=== PATIENT | female | born 1940 | race Caucasian/White ===

== ENCOUNTER 2016-05-09 23:39 | Inpatient (IN) | payer OTHER, MEDICARE ==
[~2016-05-09] VITALS: Ht 165.1 cm; Wt 83.5 kg
[~2016-05-09 23:39] MED LIST: BENADRYL25 MG PO; CLARITIN,ALAVAR10 MG PO; COQ10-VIT E 101 EACH PO; DAILY VALUE1 EACH PO; GLUCOSAMINE S1000 M2 PO; LOPRESSOR50 MG PO; PROTONIX40 MG PO; SENNA8.6 MG PO; SIMVASTATIN20 MG PO; STOOL SOFTENER100 MG PO
[2016-05-10 00:28] LABS: HEMATOCRIT 25.7 % (36.0-46.0); MCH 32.9 PG (29.0-34.0); MCHC 32.7 G/DL (30.0-36.0); MCV 100.8 FL (83-99); MEAN PLAT.VOLUME 9.4 uM^3 (9.5-12.4); PLATELET COUNT 225 K/uL (156-360); RBC DIS.WIDTH-CV 17.8 % (11.8-14.6); RBC DIS.WIDTH-SD 61.8 % (39-53); RED BLOOD COUNT 2.55 M/uL (3.80-5.20)
[2016-05-10 00:31] LABS: BASOPHIL COUNT 0.1 K/uL (0-0.1); EOSINOPHIL (%) 1.3 % (0-5); EOSINOPHIL COUNT 0.1 K/uL (0-0.3); IMMATURE GRANULOCYTE (%) 2.2 % (0.0-0.7); IMMATURE GRANULOCYTE COUNT 1.2 K/uL; LYMPHOCYTE COUNT 0.7 K/uL (1.0-2.8); MONOCYTE COUNT 0.7 K/uL (0-0.8); NEUTROPHIL (%) 69.7 % (45-76); NEUTROPHIL COUNT 3.7 K/uL (1.8-6.4)
[2016-05-10 00:32] LABS: WHITE BLOOD COUNT 5.4 K/uL (4.1-10.2)
[2016-05-10 00:37] LABS: CHLORIDE 110 mEq/L (99-109); POTASSIUM 4.3 mEq/L (3.7-5.4)
[2016-05-10 00:38] LABS: SODIUM 139 mEq/L (136-147)
[2016-05-10 00:40] LABS: GLUCOSE 119 mg/dL (70-99)
[2016-05-10 00:41] LABS: ANION GAP 10 MEQ/L (2-14)
[2016-05-10 00:42] LABS: TOTAL BILIRUBIN 0.9 mg/dL (0.0-1.0)
[2016-05-10 00:43] LABS: ALKALINE PHOSPHATASE 138 IU/L (3-129); GFR ESTIMATE (CALCULATED) 47 mL/min/
[2016-05-10 00:45] LABS: UREA NITROGEN (BUN) 16 mg/dL (9-23)
[2016-05-10 00:47] LABS: LIPASE 15 U/L (1.0-51.0)
[2016-05-10 00:50] LABS: TROP-I INTERPRETATION NEGATIVE; TROPONIN-I 0.06 ng/mL (0.0-0.30)
[2016-05-10 01:09] LABS: D-DIMER ELISA > 4.00 mg/L FEU (< 0.57)
[2016-05-10 04:01] LABS: ADD MIUA? YES; BILIRUBIN NEGATIVE; BLOOD LARGE; COLOR YELLOW ((YELLOW)); GLUCOSE (STRIP) NEGATIVE; KETONES NEGATIVE; LEUKOCYTES MODERATE; NITRITE NEGATIVE; PROTEIN (STRIP) 100; SPECIFIC GRAVITY 1.042 (1.000-1.030); UROBILINOGEN 0.2 MG/DL (0.2-1.0)
[2016-05-10 04:11] LABS: BACTERIA RARE /HPF; CASTS NONE SEEN /LPF; CRYSTALS NONE SEEN; EPITHELIAL CELLS 3+ /HPF; MUCUS TRACE /LPF; RED BLOOD CELLS TNTC /HPF (0-5); UCUL ADDED? NO; WHITE BLOOD CELLS 20-30 /HPF (0-5)
[2016-05-10] MEDS ORDERED: NAPROXEN250 MG PO (08:21)
[2016-05-10] MEDS ORDERED: MAXZIDE 37.5 M1 EACH PO (08:22)
[2016-05-10] MEDS ORDERED: AMOX TR-K CLV1 EAC4 PO (08:23)
[2016-05-10 12:34] LABS: HEMATOLOGY COMMENT 1 SMEAR COMPATIBLE; USER ID VLB
[2016-05-10 16:26] VITALS: BP 146/80
[2016-05-10 17:00] VITALS: BP 155/84
[2016-05-10 19:44] VITALS: BP 158/75
[2016-05-11] VITALS (11 sets, daily range): BP systolic 132–163; BP diastolic 63–92
[2016-05-11 07:04] LABS: HEMATOCRIT 21.8 % (36.0-46.0); MCH 32.1 PG (29.0-34.0); MCHC 32.6 G/DL (30.0-36.0); MCV 98.6 FL (83-99); RBC DIS.WIDTH-CV 19.2 % (11.8-14.6); RBC DIS.WIDTH-SD 67.4 % (39-53); RED BLOOD COUNT 2.21 M/uL (3.80-5.20)
[2016-05-11 07:49] LABS: ALKALINE PHOSPHATASE 91 IU/L (3-129); ANION GAP 8 MEQ/L (2-14); CHLORIDE 110 MEQ/L (99-109); GFR ESTIMATE (CALCULATED) 47 mL/min/; GLUCOSE 90 mg/dL (70-99); POTASSIUM 4.4 MEQ/L (3.7-5.4); SAMPLE HEMOLYSIS CHECK 0; SAMPLE ICTERIC CHECK 0; SAMPLE LIPEMIA CHECK 0; SODIUM 140 MEQ/L (136-147); TOTAL BILIRUBIN 0.9 MG/DL (0.0-1.0); UREA NITROGEN (BUN) 18 mg/dL (9-23)
[2016-05-11 08:17] LABS: INTER. NORMALIZED RATIO 1.1; PROTHROMBIN TIME 11.4 (9.2-11.2); PTT 33.3 (25-32)
[2016-05-11 08:31] LABS: IRON 214 MCG/DL (35-150)
[2016-05-11 08:46] LABS: ABSOLUTE RETICULOCYTE CT. 0.05 M/uL (0.02-0.08); IMM.RETIC FRACTION 36.3 % (3-19); RETICULOCYTE COUNT 2.2 % (0.5-1.8)
[2016-05-11 09:52] LABS: PLATELET COUNT 147 K/uL (156-360)
[2016-05-11 09:58] LABS: HEMATOCRIT 24.8 % (36.0-46.0)
[2016-05-11 10:39] LABS: FERRITIN 821 NG/ML (10-291)
[2016-05-11 13:18] LABS: TROP-I INTERPRETATION POSITIVE
[2016-05-11 13:20] LABS: TROPONIN-I 1.08 ng/mL (0.0-0.30)
[2016-05-11 20:46] LABS: TROP-I INTERPRETATION POSITIVE
[2016-05-11 20:47] LABS: TROPONIN-I 1.56 ng/mL (0.0-0.30)
[2016-05-11 22:44] LABS: HEMATOCRIT 29.9 % (36.0-46.0); MCV 97.7 FL (83-99)
[2016-05-12 01:04] LABS: TROP-I INTERPRETATION POSITIVE
[2016-05-12 01:06] LABS: TROPONIN-I 1.56 ng/mL (0.0-0.30)
[2016-05-12 04:09] VITALS: BP 135/67
[2016-05-12 06:58] LABS: HEMATOCRIT 25.8 % (36.0-46.0); MCH 31.9 PG (29.0-34.0); MCHC 33.3 G/DL (30.0-36.0); MCV 95.6 FL (83-99); RBC DIS.WIDTH-SD 64.6 % (39-53); WHITE BLOOD COUNT 6.5 K/uL (4.1-10.2)
[2016-05-12 07:02] LABS: ANION GAP 7 MEQ/L (2-14); CHLORIDE 108 MEQ/L (99-109); GFR ESTIMATE (CALCULATED) 43 mL/min/; GLUCOSE 87 mg/dL (70-99); POTASSIUM 4.2 MEQ/L (3.7-5.4); SAMPLE HEMOLYSIS CHECK 0; SAMPLE ICTERIC CHECK 0; SAMPLE LIPEMIA CHECK 0; SODIUM 137 MEQ/L (136-147); UREA NITROGEN (BUN) 23 mg/dL (9-23)
[2016-05-12 07:13] LABS: TROP-I INTERPRETATION POSITIVE
[2016-05-12 07:20] LABS: TROPONIN-I 1.43 ng/mL (0.0-0.30)
[2016-05-12 07:57] LABS: MEAN PLAT.VOLUME 11.2 uM^3 (9.5-12.4)
[2016-05-12 08:14] LABS: PLATELET COUNT 101 K/uL (156-360)
[2016-05-12 09:00] VITALS: BP 133/63
[2016-05-12 12:00] VITALS: BP 127/60
[2016-05-12 16:08] VITALS: BP 169/76
[2016-05-12 19:30] VITALS: BP 161/74
[2016-05-12 19:33] LABS: INTERNAL CONTROL VALID? YES
[2016-05-12 20:10] LABS: HEMATOCRIT 25.8 % (36.0-46.0); MCV 95.6 FL (83-99)
[2016-05-12 23:34] VITALS: BP 145/72
[2016-05-13] VITALS (13 sets, daily range): BP systolic 121–172; BP diastolic 59–82
[2016-05-13 06:23] LABS: HEMATOCRIT 25.1 % (36.0-46.0); MCV 95.4 FL (83-99)
[2016-05-13 06:56] LABS: ANION GAP 7 MEQ/L (2-14); CHLORIDE 109 MEQ/L (99-109); GFR ESTIMATE (CALCULATED) 43 mL/min/; GLUCOSE 83 mg/dL (70-99); POTASSIUM 4.4 MEQ/L (3.7-5.4); SAMPLE HEMOLYSIS CHECK 0; SAMPLE ICTERIC CHECK 0; SAMPLE LIPEMIA CHECK 0; SODIUM 138 MEQ/L (136-147); UREA NITROGEN (BUN) 29 mg/dL (9-23)
[2016-05-13 13:50] LABS: HEMATOCRIT 27.2 % (36.0-46.0); MCV 97.5 FL (83-99)
[2016-05-14 04:45] VITALS: BP 138/77
[2016-05-14 06:50] LABS: HEMATOCRIT 27.8 % (36.0-46.0)
[2016-05-14 06:55] LABS: MCV 91.7 FL (83-99)
[2016-05-14 09:05] VITALS: BP 169/91
[2016-05-14 10:33] LABS: ANION GAP 6 MEQ/L (2-14); CHLORIDE 109 MEQ/L (99-109); GFR ESTIMATE (CALCULATED) 43 mL/min/; GLUCOSE 83 mg/dL (70-99); LACTATE DEHYDROGENASE 594 IU/L (20-246); POTASSIUM 4.4 MEQ/L (3.7-5.4); SAMPLE HEMOLYSIS CHECK 0; SAMPLE ICTERIC CHECK 0; SAMPLE LIPEMIA CHECK 0; SODIUM 137 MEQ/L (136-147); UREA NITROGEN (BUN) 31 mg/dL (9-23)
[2016-05-14 10:35] LABS: ALKALINE PHOSPHATASE 193 IU/L (3-129); TOTAL BILIRUBIN 1.7 MG/DL (0.0-1.0)
[2016-05-14 11:12] LABS: ADD MIUA? YES; BILIRUBIN NEGATIVE; BLOOD LARGE; COLOR YELLOW ((YELLOW)); GLUCOSE (STRIP) NEGATIVE; KETONES NEGATIVE; LEUKOCYTES NEGATIVE; NITRITE NEGATIVE; PROTEIN (STRIP) 30; SPECIFIC GRAVITY 1.012 (1.000-1.030); UROBILINOGEN 0.2 MG/DL (0.2-1.0)
[2016-05-14 11:37] LABS: BACTERIA 1+ /HPF; EPITHELIAL CELLS RARE /HPF; HYALINE CASTS 0-5 /LPF; MUCUS TRACE /LPF; RED BLOOD CELLS 0-5 /HPF (0-5); WHITE BLOOD CELLS 15-20 /HPF (0-5)
[2016-05-14 11:59] VITALS: BP 153/72
[2016-05-14 13:42] LABS: PLATELET COUNT 59 K/uL (156-360)
[2016-05-14 15:11] VITALS: BP 171/81
[2016-05-14 19:15] VITALS: BP 166/78
[2016-05-15 00:05] VITALS: BP 150/78
[2016-05-15 04:15] VITALS: BP 142/70
[2016-05-15 07:24] LABS: ANION GAP 3 MEQ/L (2-14); CHLORIDE 109 MEQ/L (99-109); POTASSIUM 4.2 MEQ/L (3.7-5.4); SAMPLE HEMOLYSIS CHECK 0; SAMPLE ICTERIC CHECK 0; SAMPLE LIPEMIA CHECK 0; SODIUM 137 MEQ/L (136-147)
[2016-05-15 07:30] LABS: GFR ESTIMATE (CALCULATED) 52 mL/min/; GLUCOSE 85 mg/dL (70-99); UREA NITROGEN (BUN) 32 mg/dL (9-23)
[2016-05-15 07:32] LABS: C3 COMPLEMENT 129 MG/DL (58-170); C4 COMPLEMENT 37 MG/DL (10-40)
[2016-05-15 07:34] LABS: DIRECT BILIRUBIN 0.6 mg/dL (0.0-0.3); TOTAL BILIRUBIN 1.4 MG/DL (0.0-1.0)
[2016-05-15 07:36] LABS: EOSINOPHIL (%) 5.6 % (0-5); EOSINOPHIL COUNT 0.2 K/uL (0-0.3); IMMATURE GRANULOCYTE (%) 0.3 % (0.0-0.7); LYMPHOCYTE COUNT 0.9 K/uL (1.0-2.8); MCH 31.6 PG (29.0-34.0); MCHC 34.3 G/DL (30.0-36.0); MCV 92.1 FL (83-99); MONOCYTE (%) 0.9 % (3-12); NEUTROPHIL (%) 67.5 % (45-76); NEUTROPHIL COUNT 2.3 K/uL (1.8-6.4); RBC DIS.WIDTH-CV 18.9 % (11.8-14.6); RBC DIS.WIDTH-SD 62.1 % (39-53); RED BLOOD COUNT 3.04 M/uL (3.80-5.20)
[2016-05-15 07:48] LABS: WHITE BLOOD COUNT 3.4 K/uL (4.1-10.2)
[2016-05-15 07:49] VITALS: BP 167/80
[2016-05-15 07:56] LABS: ALKALINE PHOSPHATASE 258 IU/L (3-129)
[2016-05-15 08:27] LABS: PLAT.SUFFICIENCY DECREASED; USER ID STC
[2016-05-15 08:48] LABS: PLATELET COUNT 34 K/uL (156-360)
[2016-05-15 10:05] LABS: HEMATOCRIT 27.7 % (36.0-46.0)
[2016-05-15 11:15] LABS: ANTI-HEPATITIS A VIRUS (IGM) Nonreactive; HAV INDEX 0.39; HPCA INDEX 0.15
[2016-05-15 11:17] LABS: ANTI-HEPATITIS B CORE (IGM) Nonreactive; HBC IgM INDEX 0.06
[2016-05-15 12:33] VITALS: BP 171/83
[2016-05-15 12:54] LABS: PROTHROMBIN TIME 10.3 (9.2-11.2); PTT 33.4 (25-32)
[2016-05-15 13:25] LABS: ALKALINE PHOSPHATASE 258 IU/L (3-129); DIRECT BILIRUBIN 0.5 mg/dL (0.0-0.3); TOTAL BILIRUBIN 1.2 MG/DL (0.0-1.0)
[2016-05-15 14:36] LABS: UR CREATININE CONCENTRATION 90.6 MG/DL
[2016-05-15 15:45] VITALS: BP 152/77
[2016-05-15] MEDS ORDERED: FUROSEMIDE20 MG PO (16:29)
[2016-05-15] MEDS ORDERED: LISINOPRIL10 MG PO (16:29)
[2016-05-15] MEDS ORDERED: LOPRESSOR50 MG PO (16:29)
[2016-05-15] MEDS ORDERED: K-DUR10 MEQ PO (16:32)
== END 2016-05-15 18:31 | disposition home or self-care (01) | DRG 281 ==
LOC: EME 23:39 → 4EAST 05-10 04:43 → EDOF 05-10 04:43 → 5SOUTH 05-10 04:43 → 4EAST 05-11 16:19
PROVIDERS: Emergency Medicine; Hospitalist; Internal Medicine; Internal Medicine Cardiovascular Disease; Internal Medicine Gastroenterology; Internal Medicine Nephrology; Physician Assistant Medical; Radiology Diagnostic Radiology
PROC: 30233N1 Transfusion of Nonautologous Red Blood Cells into Peripheral Vein, Percutaneous Approach (ICD-10-PCS; principal; 2016-05-13)
DX: I50.33 Acute on chronic diastolic (congestive) heart failure (principal); I21.4 Non-ST elevation (NSTEMI) myocardial infarction; J90 Pleural effusion, not elsewhere classified; D64.81 Anemia due to antineoplastic chemotherapy; C25.7 Malignant neoplasm of other parts of pancreas; N39.0 Urinary tract infection, site not specified; I24.9 Acute ischemic heart disease, unspecified; I10 Essential (primary) hypertension; E78.5 Hyperlipidemia, unspecified; D69.6 Thrombocytopenia, unspecified; K75.9 Inflammatory liver disease, unspecified
CPT/HCPCS: 71020; 71275; 76604; 76705; 76770; 80048; 80053; 80069; 80074; 80076; 81003; 82272; 82550; 82570; 82607; 82728; 82746; 82945; 83010 90; 83540; 83615; 83615 91; 83690; 83880; 84156; 84157; 84466; 84484; 85014; 85018; 85025; 85027; 85045; 85049; 85379; 85610; 85730; 86160; 86162 90; 86850; 86900; 86901; 86920; 87070; 87086; 87205; 89051; 93005; 93306; 93970; 94640; 94640 76; 99202; 99281; 99285; J0744; J1650; J1940; J1956; J7030; P9016

== ENCOUNTER 2016-05-17 16:45 | Emergency (ER) | payer OTHER, MEDICARE ==
[~2016-05-17] VITALS: Ht 165.1 cm; Wt 81.0 kg
[~2016-05-17 16:45] MED LIST changes: +AMOX TR-K CLV1 EAC4 PO; +FUROSEMIDE20 MG PO; +K-DUR10 MEQ PO; +LISINOPRIL10 MG PO; +MAXZIDE 37.5 M1 EACH PO; +NAPROXEN250 MG PO
[2016-05-17 17:42] LABS: CHLORIDE 110 mEq/L (99-109); POTASSIUM 4.9 mEq/L (3.7-5.4); SODIUM 138 mEq/L (136-147)
[2016-05-17 17:44] LABS: GLUCOSE 82 mg/dL (70-99)
[2016-05-17 17:46] LABS: ANION GAP 8 MEQ/L (2-14); TOTAL BILIRUBIN 1.3 mg/dL (0.0-1.0)
[2016-05-17 17:48] LABS: ALKALINE PHOSPHATASE 383 IU/L (3-129); GFR ESTIMATE (CALCULATED) 47 mL/min/
[2016-05-17 17:49] LABS: UREA NITROGEN (BUN) 28 mg/dL (9-23)
[2016-05-17 17:50] LABS: DIRECT BILIRUBIN 0.6 mg/dL (0.0-0.3)
[2016-05-17 17:51] LABS: LIPASE 27 U/L (1.0-51.0)
[2016-05-17 19:30] LABS: ABS NEUTROPHIL COUNT 2.06; ANISOCYTOSIS 1+; BASOPHIL COUNT 0.1 K/uL (0-0.1); EOSINOPHIL (%) 3.6 % (0-5); EOSINOPHIL ABS CT 0.35; EOSINOPHIL COUNT 0.2 K/uL (0-0.3); HEMATOCRIT 27.7 % (36.0-46.0); IMMATURE GRANULOCYTE (%) 4.6 % (0.0-0.7); LYMPHOCYTE COUNT 1.2 K/uL (1.0-2.8); MCH 30.9 PG (29.0-34.0); MCHC 33.6 G/DL (30.0-36.0); MONOCYTE (%) 18.2 % (3-12); MONOCYTE COUNT 0.8 K/uL (0-0.8); NEUTROPHIL (%) 45.6 % (45-76); OVALOCYTES 1+; PLAT.SUFFICIENCY DECREASED; POLYCHROMASIA OCC; RBC DIS.WIDTH-SD 56.7 % (39-53); RED BLOOD COUNT 3.01 M/uL (3.80-5.20); SCHISTOCYTES 1+; TEAR DROP CELLS RARE; USER ID WCD; WHITE BLOOD COUNT 4.4 K/uL (4.1-10.2)
[2016-05-17 19:32] LABS: PLATELET COUNT 29 K/uL (156-360)
[2016-05-17 19:35] VITALS: BP 169/90
[2016-05-17 19:50] VITALS: BP 172/93; BP 175/117
[2016-05-17 20:50] VITALS: BP 170/92
== END 2016-05-17 20:50 | disposition short-term general hospital (02) ==
LOC: EME 16:45
PROVIDERS: Emergency Medicine
DX: M31.1 Thrombotic microangiopathy (principal); C25.9 Malignant neoplasm of pancreas, unspecified; E78.5 Hyperlipidemia, unspecified; I10 Essential (primary) hypertension
CPT/HCPCS: 80048; 80076; 83690; 85007; 85025 91; 85027; 85060; 85397 90; 86850; 86900; 86901; 99281; 99285; J2930; J7030; P9017

== ENCOUNTER 2016-06-21 01:04 | Inpatient (IN) | payer OTHER, MEDICARE ==
[~2016-06-21] VITALS: Ht 165.1 cm; Wt 78.5 kg
[2016-06-21] VITALS (12 sets, daily range): BP systolic 154–186; BP diastolic 82–119
[2016-06-21 02:12] LABS: MCH 30.9 PG (29.0-34.0); MCHC 30.8 G/DL (30.0-36.0); MCV 100.4 FL (83-99); MEAN PLAT.VOLUME 11.3 uM^3 (9.5-12.4); RBC DIS.WIDTH-CV 18.3 % (11.8-14.6); RBC DIS.WIDTH-SD 67.5 % (39-53); RED BLOOD COUNT 2.59 M/uL (3.80-5.20); WHITE BLOOD COUNT 10.3 K/uL (4.1-10.2)
[2016-06-21 02:22] LABS: INTER. NORMALIZED RATIO 1.1; PROTHROMBIN TIME 11.6 (9.2-11.2); PTT 32.7 (25-32)
[2016-06-21 02:26] LABS: CHLORIDE 114 mEq/L (99-109); POTASSIUM 4.3 mEq/L (3.7-5.4); SODIUM 145 mEq/L (136-147)
[2016-06-21 02:28] LABS: GLUCOSE 146 mg/dL (70-99)
[2016-06-21 02:29] LABS: ANION GAP 9 MEQ/L (2-14); PLATELET COUNT 154 K/uL (156-360)
[2016-06-21 02:30] LABS: TOTAL BILIRUBIN 1.2 mg/dL (0.0-1.0)
[2016-06-21 02:31] LABS: ALKALINE PHOSPHATASE 156 IU/L (3-129)
[2016-06-21 02:32] LABS: GFR ESTIMATE (CALCULATED) 28 mL/min/
[2016-06-21 02:33] LABS: UREA NITROGEN (BUN) 39 mg/dL (9-23)
[2016-06-21 02:35] LABS: LIPASE 130 U/L (1.0-51.0); TROP-I INTERPRETATION NEGATIVE; TROPONIN-I 0.25 ng/mL (0.0-0.30)
[2016-06-21] MEDS ORDERED: LASIX40 MG PO (10:30)
[2016-06-21] MEDS ORDERED: PROCARDIA XL60 MG PO (10:31)
[2016-06-21] MEDS ORDERED: ZOFRAN4 MG PO (10:32)
[2016-06-21] MEDS ORDERED: VENTOLIN HFA18 GM IH (10:32)
[2016-06-21 14:52] LABS: LACTATE DEHYDROGENASE 508 IU/L (20-246)
[2016-06-22 04:40] VITALS: BP 150/71
[2016-06-22 08:08] LABS: HEMATOCRIT 25.4 % (36.0-46.0); MCH 31.1 PG (29.0-34.0); MCHC 31.5 G/DL (30.0-36.0); MCV 98.8 FL (83-99); RBC DIS.WIDTH-SD 64.3 % (39-53); RED BLOOD COUNT 2.57 M/uL (3.80-5.20); WHITE BLOOD COUNT 9.8 K/uL (4.1-10.2)
[2016-06-22 08:28] LABS: ANION GAP 13 MEQ/L (2-14); CHLORIDE 113 MEQ/L (99-109); GFR ESTIMATE (CALCULATED) 28 mL/min/; POTASSIUM 3.9 MEQ/L (3.7-5.4); SAMPLE HEMOLYSIS CHECK 0; SAMPLE ICTERIC CHECK 0; SAMPLE LIPEMIA CHECK 0; SODIUM 148 MEQ/L (136-147); UREA NITROGEN (BUN) 36 mg/dL (9-23)
[2016-06-22 08:29] LABS: ALKALINE PHOSPHATASE 115 IU/L (3-129); GLUCOSE 84 mg/dL (70-99); TOTAL BILIRUBIN 0.9 MG/DL (0.0-1.0)
[2016-06-22 08:36] LABS: BASOPHIL COUNT 0.1 K/uL (0-0.1); EOSINOPHIL (%) 9.6 % (0-5); EOSINOPHIL COUNT 0.9 K/uL (0-0.3); IMMATURE GRANULOCYTE (%) 0.5 % (0.0-0.7); IMMATURE GRANULOCYTE COUNT 0.1 K/uL; INSTRUMENT ABS NEUTROPHIL CT 6.4 K/uL; MONOCYTE (%) 12.6 % (3-12); MONOCYTE COUNT 1.2 K/uL (0-0.8); NEUTROPHIL COUNT 6.4 K/uL (1.8-6.4); PLAT.SUFFICIENCY DECREASED
[2016-06-22 08:37] LABS: PLATELET COUNT 103 K/uL (156-360)
[2016-06-22 11:54] VITALS: BP 168/82
[2016-06-22 16:54] VITALS: BP 120/65
[2016-06-22 20:39] VITALS: BP 130/63
[2016-06-23] VITALS (7 sets, daily range): BP systolic 115–146; BP diastolic 58–83
[2016-06-23 04:26] LABS: BASOPHIL COUNT 0.1 K/uL (0-0.1); EOSINOPHIL (%) 24.4 % (0-5); EOSINOPHIL COUNT 2.3 K/uL (0-0.3); HEMATOCRIT 23.8 % (36.0-46.0); IMMATURE GRANULOCYTE (%) 0.3 % (0.0-0.7); INSTRUMENT ABS NEUTROPHIL CT 4.6 K/uL; LYMPHOCYTE COUNT 1.1 K/uL (1.0-2.8); MCH 30.6 PG (29.0-34.0); MCHC 31.1 G/DL (30.0-36.0); MCV 98.3 FL (83-99); MEAN PLAT.VOLUME 11.7 uM^3 (9.5-12.4); MONOCYTE (%) 15.1 % (3-12); MONOCYTE COUNT 1.5 K/uL (0-0.8); NEUTROPHIL (%) 47.8 % (45-76); NEUTROPHIL COUNT 4.6 K/uL (1.8-6.4); PLATELET COUNT 114 K/uL (156-360); RBC DIS.WIDTH-SD 61.2 % (39-53); RED BLOOD COUNT 2.42 M/uL (3.80-5.20); WHITE BLOOD COUNT 9.6 K/uL (4.1-10.2)
[2016-06-23 04:36] LABS: CHLORIDE 112 mEq/L (99-109); POTASSIUM 3.7 mEq/L (3.7-5.4); SODIUM 145 mEq/L (136-147)
[2016-06-23 04:37] LABS: CHLORIDE 112 mEq/L (99-109); POTASSIUM 3.7 mEq/L (3.7-5.4); SODIUM 144 mEq/L (136-147)
[2016-06-23 04:38] LABS: GLUCOSE 81 mg/dL (70-99)
[2016-06-23 04:39] LABS: ANION GAP 10 MEQ/L (2-14); GLUCOSE 82 mg/dL (70-99)
[2016-06-23 04:40] LABS: ANION GAP 10 MEQ/L (2-14)
[2016-06-23 04:41] LABS: GFR ESTIMATE (CALCULATED) 25 mL/min/
[2016-06-23 04:42] LABS: GFR ESTIMATE (CALCULATED) 25 mL/min/; UREA NITROGEN (BUN) 39 mg/dL (9-23)
[2016-06-23 04:44] LABS: UREA NITROGEN (BUN) 38 mg/dL (9-23)
[2016-06-24 04:27] VITALS: BP 152/72
[2016-06-24 06:59] LABS: BASOPHIL COUNT 0.2 K/uL (0-0.1); EOSINOPHIL (%) 24.7 % (0-5); EOSINOPHIL COUNT 2.5 K/uL (0-0.3); IMMATURE GRANULOCYTE (%) 0.3 % (0.0-0.7); INSTRUMENT ABS NEUTROPHIL CT 4.6 K/uL; LYMPHOCYTE COUNT 1.3 K/uL (1.0-2.8); MCH 30.3 PG (29.0-34.0); MCHC 31.2 G/DL (30.0-36.0); MCV 97.4 FL (83-99); MEAN PLAT.VOLUME 11.8 uM^3 (9.5-12.4); MONOCYTE (%) 16.1 % (3-12); MONOCYTE COUNT 1.6 K/uL (0-0.8); NEUTROPHIL (%) 44.8 % (45-76); NEUTROPHIL COUNT 4.6 K/uL (1.8-6.4); PLATELET COUNT 132 K/uL (156-360); RBC DIS.WIDTH-CV 16.5 % (11.8-14.6); RBC DIS.WIDTH-SD 59.6 % (39-53); RED BLOOD COUNT 2.67 M/uL (3.80-5.20); WHITE BLOOD COUNT 10.2 K/uL (4.1-10.2)
[2016-06-24 07:28] LABS: ANION GAP 8 MEQ/L (2-14); CHLORIDE 109 MEQ/L (99-109); GFR ESTIMATE (CALCULATED) 28 mL/min/; GLUCOSE 83 mg/dL (70-99); POTASSIUM 3.6 MEQ/L (3.7-5.4); SAMPLE HEMOLYSIS CHECK 0; SAMPLE ICTERIC CHECK 0; SAMPLE LIPEMIA CHECK 0; SODIUM 143 MEQ/L (136-147); UREA NITROGEN (BUN) 40 mg/dL (9-23)
[2016-06-24 09:20] VITALS: BP 150/75
[2016-06-24 11:37] VITALS: BP 152/76
[2016-06-24 17:10] VITALS: BP 125/70
[2016-06-24 19:26] VITALS: BP 140/68
[2016-06-24 23:36] VITALS: BP 117/61
[2016-06-25 04:06] VITALS: BP 140/66
[2016-06-25 05:54] LABS: ANION GAP 8 MEQ/L (2-14); BASOPHIL COUNT 0.1 K/uL (0-0.1); CHLORIDE 107 MEQ/L (99-109); EOSINOPHIL (%) 23.7 % (0-5); GFR ESTIMATE (CALCULATED) 29 mL/min/; GLUCOSE 77 mg/dL (70-99); HEMATOCRIT 24.9 % (36.0-46.0); IMMATURE GRANULOCYTE (%) 0.5 % (0.0-0.7); INSTRUMENT ABS NEUTROPHIL CT 3.7 K/uL; LYMPHOCYTE COUNT 1.4 K/uL (1.0-2.8); MCH 30.6 PG (29.0-34.0); MCHC 31.7 G/DL (30.0-36.0); MCV 96.5 FL (83-99); MEAN PLAT.VOLUME 11.6 uM^3 (9.5-12.4); MONOCYTE COUNT 1.3 K/uL (0-0.8); NEUTROPHIL (%) 43.8 % (45-76); NEUTROPHIL COUNT 3.7 K/uL (1.8-6.4); PLATELET COUNT 129 K/uL (156-360); POTASSIUM 3.6 MEQ/L (3.7-5.4); RBC DIS.WIDTH-CV 16.3 % (11.8-14.6); RBC DIS.WIDTH-SD 58.1 % (39-53); RED BLOOD COUNT 2.58 M/uL (3.80-5.20); SAMPLE HEMOLYSIS CHECK 0; SAMPLE ICTERIC CHECK 0; SAMPLE LIPEMIA CHECK 0; SODIUM 140 MEQ/L (136-147); UREA NITROGEN (BUN) 44 mg/dL (9-23); URIC ACID 7.9 mg/dL (3.1-9.2); WHITE BLOOD COUNT 8.5 K/uL (4.1-10.2)
[2016-06-25 08:10] LABS: INTERNAL CONTROL VALID? YES
[2016-06-25 08:25] VITALS: BP 144/74
[2016-06-25 12:28] VITALS: BP 119/57
[2016-06-25] MEDS ORDERED: LASIX20 MG PO (14:03)
[2016-06-25] MEDS ORDERED: POTASSIUM CHLO10 ME3 PO (14:03)
== END 2016-06-25 16:25 | disposition home health service (06) | DRG 291 ==
LOC: EME 01:04 → 4EAST 06:18 → EDOF 06:18 → 4EAST 17:20
PROVIDERS: Emergency Medicine; Internal Medicine Nephrology; Student in an Organized Health Care Education/Training Program
PROC: 30233N1 Transfusion of Nonautologous Red Blood Cells into Peripheral Vein, Percutaneous Approach (ICD-10-PCS; principal; 2016-06-21)
DX: I50.33 Acute on chronic diastolic (congestive) heart failure (principal); D59.3 Hemolytic-uremic syndrome; J96.01 Acute respiratory failure with hypoxia; E87.0 Hyperosmolality and hypernatremia; C25.9 Malignant neoplasm of pancreas, unspecified; I13.0 Hypertensive heart and chronic kidney disease with heart failure and stage 1 through stage 4 chronic kidney disease, or unspecified chronic kidney disease; N17.9 Acute kidney failure, unspecified; I25.2 Old myocardial infarction; E78.5 Hyperlipidemia, unspecified; D53.9 Nutritional anemia, unspecified; Z85.07 Personal history of malignant neoplasm of pancreas; I16.0 Hypertensive urgency; N18.9 Chronic kidney disease, unspecified; I08.0 Rheumatic disorders of both mitral and aortic valves; E83.39 Other disorders of phosphorus metabolism; D69.6 Thrombocytopenia, unspecified; E88.09 Other disorders of plasma-protein metabolism, not elsewhere classified
CPT/HCPCS: 71010; 71020; 80048 91; 80053; 80069; 83010 90; 83615; 83690; 83880; 84484; 84550; 85025; 85027; 85610; 85730; 86850; 86900; 86901; 86920; 87040; 87449; 93970; 94640; 94760; 94799; 99202; 99281; 99285; J0360; J1940; J2405; J2543; J3370; J7050; P9016

== ENCOUNTER 2016-08-02 18:20 | Emergency (ER) | payer OTHER, MEDICARE ==
[~2016-08-02] VITALS: Ht 165.1 cm; Wt 63.9 kg
[~2016-08-02 18:20] MED LIST changes: +LASIX20 MG PO; +LASIX40 MG PO; +POTASSIUM CHLO10 ME3 PO; +PROCARDIA XL60 MG PO; +VENTOLIN HFA18 GM IH; +ZOFRAN4 MG PO
[2016-08-02 20:05] LABS: HEMATOCRIT 30.9 % (36.0-46.0); MCH 31.2 PG (29.0-34.0); PLATELET COUNT 229 K/uL (156-360); RBC DIS.WIDTH-CV 12.4 % (11.8-14.6); RBC DIS.WIDTH-SD 42.2 % (39-53); RED BLOOD COUNT 3.37 M/uL (3.80-5.20)
[2016-08-02 20:16] LABS: CHLORIDE 105 mEq/L (99-109); MCV 91.7 FL (83-99); POTASSIUM 4.3 mEq/L (3.7-5.4); SODIUM 137 mEq/L (136-147); WHITE BLOOD COUNT 6.4 K/uL (4.1-10.2)
[2016-08-02 20:18] LABS: GLUCOSE 105 mg/dL (70-99)
[2016-08-02 20:19] LABS: ANION GAP 8 MEQ/L (2-14)
[2016-08-02 20:20] LABS: TOTAL BILIRUBIN 0.4 mg/dL (0.0-1.0)
[2016-08-02 20:21] LABS: ALKALINE PHOSPHATASE 90 IU/L (3-129)
[2016-08-02 20:22] LABS: GFR ESTIMATE (CALCULATED) 58 mL/min/
[2016-08-02 20:23] LABS: UREA NITROGEN (BUN) 17 mg/dL (9-23)
[2016-08-02 20:25] LABS: LIPASE 20 U/L (1.0-51.0)
[2016-08-02 20:26] LABS: ADD MIUA? YES; BILIRUBIN NEGATIVE; BLOOD LARGE; COLOR YELLOW ((YELLOW)); GLUCOSE (STRIP) NEGATIVE; KETONES NEGATIVE; LEUKOCYTES TRACE; NITRITE NEGATIVE; PROTEIN (STRIP) 100; SPECIFIC GRAVITY 1.014 (1.000-1.030); UROBILINOGEN 0.2 MG/DL (0.2-1.0)
[2016-08-02 20:28] LABS: PROTHROMBIN TIME 10.4 (9.2-11.2)
[2016-08-02 20:42] LABS: BACTERIA NONE SEEN /HPF; EPITHELIAL CELLS RARE /HPF; HYALINE CASTS 0-5 /LPF; MUCUS TRACE /LPF; UCUL ADDED? NO; WHITE BLOOD CELLS 0-5 /HPF (0-5)
[2016-08-02] MEDS ORDERED: ZOFRAN4 MG PO (22:46)
[2016-08-02] MEDS ORDERED: PERCOCET 5/31 TABLET PO (22:46)
[2016-08-02 23:10] VITALS: BP 175/103
== END 2016-08-02 23:14 | disposition home or self-care (01) ==
LOC: EME 18:20
PROVIDERS: Physician Assistant
DX: R10.9 Unspecified abdominal pain (principal); R11.2 Nausea with vomiting, unspecified; Z85.07 Personal history of malignant neoplasm of pancreas; I10 Essential (primary) hypertension; Z90.49 Acquired absence of other specified parts of digestive tract
CPT/HCPCS: 74177; 80053; 81003; 83690; 85027; 85610; 99281; 99285; J2405; J3010